=== PATIENT | female | born 1990 | race Caucasian/White ===

== ENCOUNTER 2016-08-11 07:34 | Emergency (ER) | payer OTHER ==
[~2016-08-11 07:34] MED LIST: ALBUTEROL17 GM INH; AMOXICILLIN500 M1 PO; ATIVAN; BACTRIM DS TABL1 TAB PO; BENTYL20 M1 PO; CELEXA20 MG PO; CLINDAMYCIN HC300 MG PO; DIAZEPAM PO; FLEXERIL PO; KEFLEX500 MG PO; KETOPROFEN PO; KLONOPIN1 M1; LEXAPRO; LORTAB 10-3251 EACH PO; LORTAB 2.5/5001 TAB PO; LORTAB 7.5-5001 TAB PO; LORTAB 7.51 TAB PO; MEDROL PO; MOTRIN600 MG PO; NAPROXEN PO; NO MEDICATIONS; NUVARING V1 VAG.RING; PHENERGAN25 M1 PO; PREDNISONE PO; PROTONIX PO; RITALIN; TRAMADOL HCL50 M1; TYLENOL #3 PO; XANAX1 MG PO; ZANTAC150 M1 PO
[2016-08-11] MEDS ORDERED: KLONOPIN (07:39)
[2016-08-11] MEDS ORDERED: CONCERTA (07:40)
[2016-08-11] MEDS ORDERED: HYDROCODON-ACE1 EAC7 (07:40)
[2016-08-11] MEDS ORDERED: LEXAPRO (07:40)
== END 2016-08-11 07:59 | disposition home or self-care (01) ==
LOC: SED 07:34
DX: K08.89 Other specified disorders of teeth and supporting structures (principal); F43.10 Post-traumatic stress disorder, unspecified; Z88.2 Allergy status to sulfonamides; Z88.5 Allergy status to narcotic agent; Z91.040 Latex allergy status
CPT/HCPCS: 99282

== ENCOUNTER 2016-10-07 12:29 | Emergency (ER) | payer OTHER ==
[~2016-10-07] VITALS: Ht 165.1 cm; Wt 52.2 kg
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
[~2016-10-07 12:29] MED LIST changes: +CONCERTA; +HYDROCODON-ACE1 EAC7; +KLONOPIN
[2016-10-07] MEDS ORDERED: PERCOCET (15:37)
[2016-10-07] MEDS ORDERED: CONCERTA (15:37)
[2016-10-07] MEDS ORDERED: KLONOPIN1 MG (15:37)
[2016-10-07] MEDS ORDERED: LEXAPRO20 MG (15:37)
== END 2016-10-07 14:30 | disposition home or self-care (01) ==
LOC: CFTX 12:29 → CED 12:29 → CFTX 13:02 → CED 14:30
DX: S91.211A Laceration without foreign body of right great toe with damage to nail, initial encounter (principal); S90.01XA Contusion of right ankle, initial encounter; S90.31XA Contusion of right foot, initial encounter; F41.9 Anxiety disorder, unspecified; F17.200 Nicotine dependence, unspecified, uncomplicated; Z88.2 Allergy status to sulfonamides; Z88.5 Allergy status to narcotic agent; Z91.040 Latex allergy status; W20.8XXA Other cause of strike by thrown, projected or falling object, initial encounter; Y92.009 Unspecified place in unspecified non-institutional (private) residence as the place of occurrence of the external cause
CPT/HCPCS: 73610; 73630; 96372; 99283; J2270

== ENCOUNTER 2016-10-07 15:30 | Emergency (ER) | payer OTHER ==
[~2016-10-07] VITALS: Ht 165.1 cm; Wt 55.8 kg
[2016-10-07] MEDS ORDERED: LEXAPRO20 MG (15:37)
[2016-10-07] MEDS ORDERED: KLONOPIN1 MG (15:37)
[2016-10-07] MEDS ORDERED: PERCOCET (15:37)
[2016-10-07] MEDS ORDERED: CONCERTA (15:37)
== END 2016-10-07 16:07 | disposition home or self-care (01) ==
LOC: SED 15:30
DX: S90.31XA Contusion of right foot, initial encounter (principal); F43.10 Post-traumatic stress disorder, unspecified; F41.0 Panic disorder [episodic paroxysmal anxiety]; F32.9 Major depressive disorder, single episode, unspecified; F17.210 Nicotine dependence, cigarettes, uncomplicated; Z86.14 Personal history of Methicillin resistant Staphylococcus aureus infection; W20.8XXA Other cause of strike by thrown, projected or falling object, initial encounter; Y92.009 Unspecified place in unspecified non-institutional (private) residence as the place of occurrence of the external cause
CPT/HCPCS: 29540; 99283

== ENCOUNTER 2016-10-08 11:30 | Emergency (ER) | payer OTHER ==
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
[~2016-10-08 11:30] MED LIST changes: +KLONOPIN1 MG; +LEXAPRO20 MG; +PERCOCET
== END 2016-10-08 12:55 | disposition left against medical advice (07) ==
LOC: SED 11:30
DX: S91.311A Laceration without foreign body, right foot, initial encounter (principal); F41.9 Anxiety disorder, unspecified; F32.9 Major depressive disorder, single episode, unspecified; F90.9 Attention-deficit hyperactivity disorder, unspecified type; F43.10 Post-traumatic stress disorder, unspecified; F17.210 Nicotine dependence, cigarettes, uncomplicated; Z88.1 Allergy status to other antibiotic agents; Z88.5 Allergy status to narcotic agent; Z88.2 Allergy status to sulfonamides; Z91.040 Latex allergy status; W22.8XXA Striking against or struck by other objects, initial encounter; Y92.009 Unspecified place in unspecified non-institutional (private) residence as the place of occurrence of the external cause
CPT/HCPCS: 73630; 99283

== ENCOUNTER 2016-10-23 17:29 | Emergency (ER) | payer OTHER ==
[2016-10-23 18:53] LABS: BASOPHIL# 0.1 X10e3 (0-0.3); BASOPHIL% 0.4 % (0-2.5); EOSINOPHIL% 0.1 % (0.0-7.0); HEMATOCRIT 43.1 % (35.0-45.0); HEMOGLOBIN 14.8 gm/dL (12.0-16.0); LYMPHOCYTE% 6.9 % (17.0-45.0); MEAN CELL VOLUME 88.3 FL (83-96); MEAN CORPUSCULAR HEMOGLOBIN 30.3 PG (28-34); MEAN CORPUSCULAR HGB CONC 34.3 g/dL (30-36); MEAN PLATELET VOLUME 8.6 FL (6.5-11.5); MONOCYTE% 6.8 % (3.0-12.0); NEUTROPHIL# 12.8 X10e3 (1.5-7.1); NEUTROPHIL% 85.8 % (40-75); PLATELET COUNT 301 X10e3 (140-420); RED BLOOD COUNT 4.88 X10e (3.90-5.30); RED CELL DISTRIBUTION WIDTH 12.5 % (11.0-15.5); WHITE BLOOD COUNT 14.9 X10e3 (4.0-10.5)
[2016-10-23 18:56] LABS: DIFF IND NO
[2016-10-23 19:12] LABS: ALBUMIN SERUM 4.4 g/dL (3.5-5.0); BILIRUBIN, DIRECT 0.1 mg/dL (0.0-0.2); BILIRUBIN,INDIRECT 0.6 mg/dL (0.0-0.9); BILIRUBIN,TOTAL 0.7 mg/dL (0.2-2.0); CALCIUM SERUM 9.1 mg/dL (8.4-10.2); CREATININE SERUM 0.5 mg/dL (0.6-1.4); GLOM FILT RATE Estimated 132.7 mL/min (>60); POTASSIUM 3.6 mmol/L (3.5-5.1); PROTEIN TOTAL SERUM 8.1 g/dL (6.0-8.3)
[2016-10-23 19:29] LABS: URINE SOURCE CLEAN CATCH
[2016-10-23 19:32] LABS: URINE APPEARANCE TURBID; URINE BILIRUBIN NEG (NEG); URINE BLOOD 3+ (NEG); URINE COLOR YELLOW; URINE GLUCOSE NEG (NORM); URINE KETONE 1+ (NEG); URINE LEUKOCYTE ESTERASE 1+ (NEG); URINE NITRATE POS (NEG); URINE PROTEIN 1+ (NEG); URINE SPECIFIC GRAVITY 1.025 (1.003-1.035)
[2016-10-23 19:33] LABS: MICRO INDICATED? YES
[2016-10-23 19:37] LABS: CULTURE INDICATED? YES; URINE BACTERIA 2+ (NEG); URINE MUCUS PRESENT; URINE SQUAMOUS EPITHELIAL CELL MODERATE /[HPF]
[2016-10-23 19:42] LABS: AMPHETAMINE NEG (NEG); BARBITURATES NEG (NEG); BENZODIAZEPINES NEG (NEG); COCAINE NEG (NEG); MARIJUANA NEG (NEG); OPIATES NEG (NEG); TRICYCLIC ANTIDEPRESSANTS NEG (NEG); U METHADONE POS (NEG)
== END 2016-10-23 21:31 | disposition home or self-care (01) ==
LOC: SED 17:29
PROVIDERS: Physician Assistant
DX: N10 Acute pyelonephritis (principal); F17.210 Nicotine dependence, cigarettes, uncomplicated; Z86.14 Personal history of Methicillin resistant Staphylococcus aureus infection; Z88.2 Allergy status to sulfonamides; Z88.5 Allergy status to narcotic agent; Z91.040 Latex allergy status
CPT/HCPCS: 36415; 71020; 80048; 80076; 80307; 81003; 84703; 85025; 87086; 87088; 87186; 96361; 96374; 96375; 99283; J0696; J1885; J2405